=== PATIENT | male | born 1995 | race Two or more races ===

== ENCOUNTER 2018-03-26 22:49 | Emergency (ER) | payer OTHER | END 2018-03-27 01:20 | disposition home or self-care (01) | LOC: FTE 03-27 01:20 | DX: T15.91XA Foreign body on external eye, part unspecified, right eye, initial encounter (principal); F17.210 Nicotine dependence, cigarettes, uncomplicated; X58.XXXA Exposure to other specified factors, initial encounter; Y92.9 Unspecified place or not applicable | CPT/HCPCS: 99283; Z7502 ==